=== PATIENT | female | born 1985 | race Caucasian/White ===

== ENCOUNTER 2019-03-20 12:11 | Emergency (ER) | payer OTHER ==
[2019-03-20 12:24] VITALS: BP 101/33
--- NOTE | 2019-03-20 12:40 | UC ---
Skin Complaint HPI - HPI Summary HPI Summary: lump under axilla and sore throat fatigue - History of Current Complaint Chief Complaint: UCSkin Time Seen by Provider: 03/20/19 12:28 Stated Complaint: SKIN COMPLAINT Hx Obtained From: Patient Hx Last Menstrual Period: 02/25/19 ?: No Onset/Duration: Gradual Onset, Lasting Weeks, Still Present Skin Exposure Onset/Duration: Minutes Ago Timing: Constant Pain Intensity: 3 Pain Scale Used: 0-10 Numeric Location: Diffuse - fatigue, Discrete - right axilla Aggravating Factor(s): Nothing Alleviating Factor(s): Nothing Associated Signs & Symptoms: Positive: Negative - Allergy/Home Medications Allergies/Adverse Reactions: Allergies Allergy/AdvReac Type Severity Reaction Status Date / Time No Known Allergies Allergy Verified 03/20/19 12:23 Home Medications: Home Medications Dextroamphetamine/Amphetamine [Adderall Xr 20 mg Capsule] 20 mg PO DAILY [History Confirmed 03/20/19] Gabapentin [Neurontin] 100 mg PO TID 03/20/19 [History Confirmed 03/20/19] Propranolol TAB* [Inderal TAB*] 40 mg PO DAILY 03/20/19 [History Confirmed 03/20] PMH/Surg Hx/FS Hx/Imm Hx Previously Healthy: No - mono Other Psychological History: ADHD, Anxiety - Surgical History Surgical History: Yes Surgery Procedure, Year, and Place: wisdom teeth extraction - Family History Known Family History: Positive: None - Social History Occupation: Unemployed Lives: With Family Alcohol Use: Daily Substance Use Type: None Smoking Status (MU): Never Smoked Tobacco Review of Systems All Other Systems Reviewed And Are Negative: Yes Constitutional: Positive: Fatigue Skin: Positive: Negative Eyes: Positive: Negative ENT: Positive: Sore Throat Respiratory: Positive: Negative Cardiovascular: Positive: Negative Gastrointestinal: Positive: Negative Genitourinary: Positive: Negative Motor: Positive: Negative Neurovascular: Positive: Negative Musculoskeletal: Positive: Myalgia - right axilla Neurological: Positive: Negative Psychological: Positive: Negative Is Patient Immunocompromised?: No Physical Exam Triage Information Reviewed: Yes Appearance: Well-Appearing, No Pain Distress, Well-Nourished Vital Signs: Initial Vital Signs Temp 97.8 F 03/20/19 12:19 Pulse 53 03/20/19 12:19 Resp 18 03/20/19 12:19 BP 101/33 03/20/19 12:19 Pulse Ox 100 03/20/19 12:19 Vital Signs Reviewed: Yes Eye Exam: Normal Eyes: Positive: Conjunctiva Clear ENT Exam: Normal ENT: Positive: Normal ENT inspection, Hearing grossly normal, Pharynx normal, TMs normal, Uvula midline. Negative: Nasal congestion, Trismus, Muffled voice, Hoarse voice, Dental tenderness, Sinus tenderness Dental Exam: Normal Neck exam: Normal Neck: Positive: Supple, Nontender Respiratory Exam: Normal Respiratory: Positive: Chest non-tender, No respiratory distress, No accessory muscle use Cardiovascular Exam: Normal Cardiovascular: Positive: RRR, Pulses Normal, Brisk Capillary Refill Musculoskeletal Exam: Normal Musculoskeletal: Positive: Strength Intact, ROM Intact, No Edema Neurological Exam: Normal Neurological: Positive: Alert, Muscle Tone Normal Psychological Exam: Normal Skin Exam: Normal Course/Dx - Course Course Of Treatment: patient offered ED for evaluation/us of right axilla---patient refused will obtain labs and follow up referral with [facility],- rst - - Diagnoses Provider Diagnosis: Fatigue, Pain in right axilla Discharge ED - Sign-Out/Discharge Documenting (check all that apply): Patient Departure All imaging exams completed and their final reports reviewed: No Studies - Discharge Plan Condition: Stable Disposition: HOME Patient Education Materials: Lymphadenopathy (ED), Fatigue (ED) Referrals: [facility] [Outside] - 3 Days - Billing Disposition and Condition Condition: STABLE Disposition: Home
[2019-03-21 11:38] LABS: ABS Eosinophils 0.1 10^3/ul (0-0.6); ABS Lymphocytes 1.4 10^3/ul (1.0-4.8); ABS Monocytes 0.5 10^3/ul (0-0.8); Eosinophil % 0.9 %; Hematocrit 38 % (35-47); Hemoglobin 13.2 g/dL (12.0-16.0); Lymphocyte % 23.7 %; Mean Corpuscular HGB Conc 35 g/dL (31-36); Mean Corpuscular Hemoglobin 31 pg (27-31); Mean Corpuscular Volume 90 fL (80-97); Mean Platelet Volume 9.1 fL (7.4-10.4); Nucleated Red Blood Cells % 0.1; Platelet Count 232 10^3/uL (150-450); Red Blood Count 4.22 10^6 /uL (3.70-4.87); Red Cell Distribution Width 13 % (10-15); White Blood Count 6.1 10^3/uL (3.5-10.8)
[2019-03-21 11:46] LABS: Albumin 4.5 g/dL (3.2-5.2); Anion Gap 5 mmol/L (2-11); CO2 Carbon Dioxide 30 mmol/L (22-32); Chloride 102 mmol/L (101-111); Potassium 4.7 mmol/L (3.5-5.0); Sodium 137 mmol/L (135-145)
[2019-03-21 11:52] LABS: ALT 11 U/L (7-52); AST 18 U/L (13-39); Albumin/Globulin Ratio 1.9 (1-3); Alkaline Phosphatase 41 U/L (34-104); BUN/Creatinine Ratio 18.4 (8-20); Blood Urea Nitrogen 14 mg/dL (6-24); C Reactive Protein < 1.00 mg/L (<8.01); EGFR African American 106.7 (>60); EGFR Non-African American 88.2 (>60); Globulin 2.4 g/dL (2-4); Glucose 100 mg/dL (70-100); Total Protein 6.9 g/dL (6.4-8.9)
[2019-03-21 12:02] LABS: TSH (Thyroid Stimulating Horm) 4.28 mcIU/mL (0.34-5.60)
== END 2019-03-20 12:55 | disposition home or self-care (01) ==
LOC: UCEAST 12:11
DX: R53.83 Other fatigue (principal); M79.621 Pain in right upper arm; J02.9 Acute pharyngitis, unspecified; F41.9 Anxiety disorder, unspecified; F90.9 Attention-deficit hyperactivity disorder, unspecified type; M79.89 Other specified soft tissue disorders; Z79.899 Other long term (current) drug therapy
CPT/HCPCS: 36415; 80053; 84443; 85025; 86140; 87651; 99201; G0463

== ENCOUNTER 2019-03-24 17:18 | Emergency (ER) | payer OTHER ==
--- OUTSIDE RECORDS SUMMARY | 2019-03-24 17:36 | XMS REPORT | Continuity of Care Document ---
:1985 External Reference #:[id number] Author Name Frank Fernández CNM Address [address] [place] [id number] Problems Description No Information Available Social History Type Date Description Comments Sex Unknown Cigarette Use Does Not Smoke Cigarettes ETOH Use Consumes 1 glass of wine per day Recreational Drug Use Does Not Use Drugs Exercise Type/Frequency Exercises regularly Seat Belt/Car Seat Always uses seat belt Allergies, Adverse Reactions, Alerts Description No Known Drug Allergies Medications Active Medications SIG Qnty Indications Ordering Provider Date Clobex prn Frank Fernández CNM 01/25/2019 0.05% Lotion Propranolol HCL ER 1 QHS Unknown 60mg Caps ER 24HR Gabapentin 20 mg tid Unknown 100mg Capsules Adderall XR daily Unknown 20mg Caps ER 24HR Medications Administered in Office Medication SIG Qnty Indications Ordering Provider Date PT SCRN Tbco Id as Non User Frank Fernández CNM 01/25/2019 Injection Immunizations Description No Information Available Vital Signs Date Vital Result Comment 01/25/2019 12:58pm BP Systolic 102 mmHg BP Diastolic 66 mmHg Height 62.75 inches 5'2.75" Weight 131.00 lb BMI (Body Mass Index) 23.4 kg/m2 Last Menstrual Period [id number] 0 Parity 0 Results Description No Information Available Procedures Date Code Description Status 01/25/2019 80296 Echography Transvaginal Completed Medical Devices Description No Information Available Encounters Type Date Location Provider Dx Diagnosis Office Visit 01/25/2019 [facility] Lynette [id number] Unspecified ovarian 1:00p CNM cyst, right side Assessments Date Code Description Provider 01/25/2019 N83.201 Unspecified ovarian cyst, right side Frank Fernández CNM 01/25/2019 Z30.431 Encounter for routine checking of intrauterine Ultrasounds contraceptive device Plan of Treatment Future Appointment(s):03/28/2019 2:00 pm - Frank Fernández CNM at [facility] 1:30 pm - Ultrasounds at [facility]01/25/2019 - MONO [id number] Unspecified ovarian cyst, right sideComments:Plan repeat sono in 2-3 months to monitor cysts. Reviewed expectant management, when to follow up. Return call PRN. Functional Status Description No Information Available Mental Status Description No Information Available Referrals Description No Information Available
--- NOTE | 2019-03-24 18:08 | ED ---
Complex/Multi-Sys Presentation - HPI Summary HPI Summary: This pt is a 33 y/o female [facility] c/o lumps under bilateral armpits that are painful. Pt reports she woke up with a lump under her right armpit about 1 month ago. She states she went to Urgent Care where she was told it was cellulitis and was given antibiotics. Pt notes 2 weeks ago she noticed a lump on her left armpit. Pt reports these lumps are painful. Denies masses on breasts. Additionally states she has been feeling fatigued. Denies recent weight loss, fever, vomiting, diarrhea. Pt notes she had a sore throat but had a strep test at Urgent Care that resulted negative. PMHx: fibromyalgia, anxiety, mono. Her medications are Adderall 20 mg, Propranolol, Gabapentin 100 mg TID, but notes she has not taken her medications this week. Pt reports ever since she had mono a couple of years ago when she gets tired she has a sore throat. Denies drug and tobacco use but admits to occasional alcohol use. NKDA. Medications reviewed. Allergies noted. - History Of Current Complaint Chief Complaint: EDGeneral Time Seen by Provider: 03/24/19 17:54 Hx Obtained From: Patient Onset/Duration: Lasting Weeks, Still Present Timing: Weeks Severity Currently: Moderate Location: Pain At: - under armpits Aggravating Factor(s): nothing Alleviating Factor(s): nothing Associated Signs And Symptoms: Positive: Other - NEGATIVE: weight loss. POSITIVE : lumps under armpits that are painful.. Negative: Vomiting, Diarrhea, Fever - Allergies/Home Medications Allergies/Adverse Reactions: Allergies Allergy/AdvReac Type Severity Reaction Status Date / Time No Known Allergies Allergy Verified 03/24/19 17:25 PMH/Surg Hx/FS Hx/Imm Hx Musculoskeletal History: Reports: Hx Fibromyalgia Psychiatric History: Reports: Hx Anxiety - Surgical History Surgical History: Yes Surgery Procedure, Year, and Place: wisdom teeth extraction Infectious Disease History: No Infectious Disease History: Denies: Traveled Outside the [place] in Last 30 Days - Family History Family History: Mother with breast CA. - Social History Alcohol Use: Occasionally Substance Use Type: Reports: None Smoking Status (MU): Never Smoked Tobacco Review of Systems Positive: Fatigue. Negative: Fever, Other - NEGATIVE: weight loss Negative: Vomiting, Diarrhea Musculoskeletal: Other - POSITIVE: pain under bilateral armpits Skin: Other - POSITIVE: lumps under bilateral armpits All Other Systems Reviewed And Are Negative: Yes Physical Exam - Summary Physical Exam Summary: Constitutional: Well-developed, Well-nourished, Alert. (-) Distressed Skin: Warm, Dry HENT: Normocephalic; Atraumatic Eyes: Conjunctiva normal Neck: Musculoskeletal ROM normal neck. (-) JVD, (-) Stridor, (-) Tracheal deviation Cardio: Rhythm regular, rate normal, Heart sounds normal; Intact distal pulses; The pedal pulses are 2+ and symmetric. Radial pulses are 2+ and symmetric. (-) Murmur Pulmonary/Chest wall: Effort normal. (-) Respiratory distress, (-) Wheezes, (-) Rales Abd: Soft, (-) tenderness, (-) Distension, (-) Guarding, (-) Rebound Musculoskeletal: (-) Edema Lymph: Tender lymphadenopathy in bilateral axilla. Neuro: Alert, Oriented x3 Psych: Mood and affect Normal Triage Information Reviewed: Yes Vital Signs On Initial Exam: Initial Vitals Temp Pulse Resp BP Pulse Ox 99.7 F 62 18 135/83 100 03/24/19 17:22 03/24/19 17:22 03/24/19 17:22 03/24/19 17:22 03/24/19 17:22 Vital Signs Reviewed: Yes Procedures - Sedation Patient Received Moderate/Deep Sedation with Procedure: No Diagnostics - Vital Signs Vital Signs Temp Pulse Resp BP Pulse Ox 03/24/19 17:22 99.7 F 62 18 135/83 100 - Laboratory Result Diagrams: 03/24/19 18:20 03/24/19 18:20 Lab Statement: Any lab studies that have been ordered have been reviewed, and results considered in the medical decision making process. - Ultrasound No standard instances Ultrasound Interpretation Completed By: Radiologist Summary of Ultrasound Findings: Soft tissue bilateral axilla ultrasound IMPRESSION: Bilateral axillary lymph nodes without suspicious features. Dr. Campo has reviewed this report. Complex Multi-Symp Course/Dx Course Of Treatment: Patient is here with bilateral axillary lymphadenopathy and fatigue. Patient has been seen at urgent care and by Dr. Oconnell for this with labs performed. Patient was concerned that she is not getting past month care as she cannot have an ultrasound for 2 weeks. Patient is overall well- appearing. Patient had repeat CBC and CMP which was grossly unremarkable. Patient did have an ultrasound showed lymphadenopathy with no suspicious features. Patient encouraged follow-up with Dr. Oconnell for further workup. - Diagnoses Provider Diagnoses: Axillary lymphadenopathy Discharge ED - Sign-Out/Discharge Documenting (check all that apply): Patient Departure - Discharge home - Discharge Plan Condition: Stable Disposition: HOME Patient Education Materials: Lymphadenopathy (ED) Referrals: [facility] REFERRAL [Outside] Care [facility] [Outside] Additional Instructions: Take Ibuprofen and Tylenol for the pain. PLEASE RETURN TO EMERGENCY DEPARTMENT FOR ANY NEW OR WORSENING SYMPTOMS. Please follow up with [facility]. Please make all follow-ups in 1-3 days unless I advise you otherwise. You have been given referral to establish a primary care physician through [facility] Physical Referral. - Billing Disposition and Condition Condition: STABLE Disposition: Home - Attestation Statements Document Initiated by S[place]: Yes Documenting Scribe: Cinda Botello Provider For Whom Маринаibe is Documenting (Include Credential): Orlando Campo MD Scribe Attestation: Cinda Morris, scribed for Orlando Campo MD on 03/24/19 at 2120. Scribe Documentation Reviewed: Yes Provider Attestation: The documentation as recorded by the Cinda cole accurately reflects the service I personally performed and the decisions made by , Orlando Campo MD Status of Scribe Document: Viewed
[2019-03-24 18:31] LABS: ABS Eosinophils 0.1 10^3/ul (0-0.6); ABS Monocytes 0.5 10^3/ul (0-0.8); ABS Neutrophils 4.1 10^3/ul (1.5-7.7); Eosinophil % 0.9 %; Hematocrit 38 % (35-47); Lymphocyte % 29.5 %; Mean Corpuscular HGB Conc 35 g/dL (31-36); Mean Corpuscular Hemoglobin 31 pg (27-31); Mean Corpuscular Volume 89 fL (80-97); Mean Platelet Volume 7.9 fL (7.4-10.4); Platelet Count 250 10^3/uL (150-450); Red Cell Distribution Width 13 % (10-15); White Blood Count 6.7 10^3/uL (3.5-10.8)
[2019-03-24 18:58] LABS: ALT 11 U/L (7-52); AST 18 U/L (13-39); Albumin 4.5 g/dL (3.2-5.2); Albumin/Globulin Ratio 1.7 (1-3); Alkaline Phosphatase 35 U/L (34-104); Anion Gap 8 mmol/L (2-11); BUN/Creatinine Ratio 14.5 (8-20); Blood Urea Nitrogen 11 mg/dL (6-24); C Reactive Protein < 1.00 mg/L (<8.01); CO2 Carbon Dioxide 25 mmol/L (22-32); Calcium 9.7 mg/dL (8.6-10.3); Chloride 103 mmol/L (101-111); EGFR African American 106.7 (>60); EGFR Non-African American 88.2 (>60); Globulin 2.6 g/dL (2-4); Glucose 86 mg/dL (70-100); Potassium 4.1 mmol/L (3.5-5.0); Sodium 136 mmol/L (135-145); Total Protein 7.1 g/dL (6.4-8.9)
[2019-03-24 19:04] LABS: HCG Pregnancy < 0.60 mIU/mL
[2019-03-24 20:30] VITALS: BP 117/73
== END 2019-03-24 20:17 | disposition home or self-care (01) ==
LOC: ED 17:18
DX: R59.0 Localized enlarged lymph nodes (principal); M79.7 Fibromyalgia; F41.9 Anxiety disorder, unspecified; Z79.899 Other long term (current) drug therapy
CPT/HCPCS: 36415; 76882; 80053; 84702; 85025; 86140; 99282